=== PATIENT | male | born 1980 | race Caucasian/White ===

== ENCOUNTER 2017-05-26 04:50 | Emergency (ER) | payer SELFPAY ==
[~2017-05-26] VITALS: Ht 188 cm; Wt 89.0 kg
[2017-05-26] MEDS ORDERED: PANTOPRAZOLE IV PUSH 40 MG VIAL. IVP ONE (05:00)
[2017-05-26] MEDS ORDERED: ONDANSETRON PF 4 MG/2 ML VIAL. IV ONE (05:00)
[2017-05-26] MEDS ORDERED: IV NORMAL SALINE 1,000ML 1,000 ML IV ONE ×4 (05:00→09:00)
--- NOTE | 2017-05-26 05:08 | PHYS DOC ---
Adult General HPI HPI Patient is a 37 year old M who presents with diarrhea. Patient states he is homeless and sleeps on different peoples couches every night and his friend dropped him off of the emergency room and left immediately. Patient denies taking any illicit drugs or alcohol. Patient states he has no past medical history. Patient states he takes no intracranial medication. Patient was too weak to get a wheelchair had to be picked up and put in the bed. Patient is a very poor historian and is somnolent but arousable with gentle shaking. Patient looks very pale. Review of Systems Review of Systems Unable to obtain secondary to patient's clinical condition All other systems were reviewed and found to be within normal limits, except as documented in this note. Current Medications Current Medications Current Medications Medications (Trade) Dose Ordered Sig/Aramis Start Time Stop Time Status Last Admin Dose Admin Ondansetron HCl (Zofran) 4 mg 1X ONCE 05/26/17 05:00 05/26/17 05:01 UNV Pantoprazole Sodium (PROTONIX VIAL for IV PUSH) 40 mg 1X ONCE 05/26/17 05:00 05/26/17 05:01 UNV Sodium Chloride 1,000 ml @ 1,000 mls/hr 1X ONCE 05/26/17 05:00 05/26/17 05:59 UNV Physical Exam Physical Exam GEN.: Severe distress. Alert and oriented. HEENT: Head is normocephalic, atraumatic, conjunctiva was very pale, mucous membranes are dry, pupils were equal and reactive bilaterally, extraocular muscles are intact bilaterally NECK: Supple. LUNGS: CTAB. HEART: Tachycardia, S1, S2 present. Peripheral pulses intact ABDOMEN: Soft, nontender. Positive bowel sounds. EXTREMITIES: Without any cyanosis. NEUROLOGIC: Somnolent but arousable PSYCHIATRIC: Confused SKIN: No ulcerations EKG EKG [] Radiology/Procedures Radiology/Procedures [] Course & Med Decision Making Course & Med Decision Making Pertinent Labs and Imaging studies reviewed. (See chart for details) ED course: Patient was seen and examined emergency room on arrival basic blood work was ordered along with a CT of the abdomen and pelvis and CT of the head along with urine drug screens and EtOH level and a type and cross 0600: Patient was signed out to Dr. Stubbs who will follow-up on lab work and found disposition I assumed care of the patient after a thorough checkout from Dr. Funk. Patient 's i-STAT labs have just returned with a hemoglobin and detectable. I called the blood bank right away to request that they get started on 4 units of O- blood. Blood bank is starting on the right away and will arrange for that to be delivered to the emergency department. Patient has had 2 L of normal saline. I reevaluated the patient. He is extremely pale, lethargic but is attempting to follow commands, he is tachycardic but not hypotensive. Discussed with the ED nursing staff are planned to rapidly transfuse 4 units of O- blood. They used a combination of rapid transfuser, pressure bags, and pump to get 4 units and him right away. Patient has already had IV Protonix, I ordered a dose of IV octreotide. I discussed the case with Dr. Hawthorne, emergency physician at [facility], who will help coordinate care from that end. I discussed the case with Dr. Sandoval, hospitalist at [facility], who will accept the patient for transfer to the ICU. [facility] nursing butcher supervisor is arranging for an ICU bed and EMS transfer. As the fourth unit of O- is going in, reassessed the patient. He looks much better. His color is better. He is mentating better, joking with family. His heart rate is down to about 105. Dr. Hawthorne called me back and he has discussed the patient with Dr. Albert, GI, and Dr. Nazario, general surgery. They are aware of the patient and will see him at [facility]. Dr. Hawthorne will take a look at the patient as he passes through the emergency department on his way to the intensive care unit. EMS arrived and we discussed the plan for emergency transport to [facility] and have Dr. Hawthorne look at the patient on the way to the ICU. Patient has been stabilized with blood transfusion to the best of our ability here at [facility] prior to transportation to [facility] where he can have GI and general surgery emergent consultation. I elected to cancel the CT scans here, preferred to resuscitate the patient with blood transfusions and transfer him for definitive care to [facility]. Critical care time 120 minutes including evaluation and management of critical GI bleed with critical anemia, tachycardia, blood transfusions, IV medications, arranging for transfer to higher level of care, consultation with accepting physician, talking to family, documentation, writing orders. [] Dragon Disclaimer Dragon Disclaimer This electronic medical record was generated, in whole or in part, using a voice recognition dictation system. Departure Departure: Impression: Primary Impression: GI bleed Additional Impression: Anemia Disposition: 02 XFER SHT-TRM HOSP Condition: CRITICAL Referrals: PCP,NO (PCP) Problem Qualifiers HERB FUNK DO May 26, 2017 05:08 KENJI STUBBS MD May 26, 2017 07:35
[2017-05-26 05:54] LABS: BASO # 0.1 x10^3/uL (0.0-0.2); BASO % 1 % (0-3); EOS # 0.2 x10^3/uL (0.0-0.7); EOS % 1 % (0-3); LYMPH # 6.9 x10^3/uL (1.0-4.8); LYMPH % 35 % (24-48); MEAN CORPUSCULAR HEMOGLOBIN 32 pg (25-35); MEAN CORPUSCULAR HGB CONC 31 g/dL (31-37); MEAN CORPUSCULAR VOLUME 103 fL (79-100); MONO # 1.3 x10^3/uL (0.0-1.1); MONO % 7 % (0-9); NEUT # 11.3 x10^3uL (1.8-7.7); NEUT % 57 % (31-73); PLATELET COUNT 390 x10^3/uL (140-400); RED CELL DISTRIBUTION WIDTH 19.1 % (11.5-14.5); WHITE BLOOD COUNT 19.8 x10^3/uL (4.0-11.0)
[2017-05-26 06:08] LABS: HEMATOCRIT 10.3 % (39.0-53.0); HEMOGLOBIN 3.2 g/dL (13.0-17.5)
--- NOTE | 2017-05-26 06:10 | EKG ---
[address] [address] Test Date: 2017-05-26 Test Time: 05:53:34 Pat Name: JCARLOS MEDRANO Department: Room: Gender: M Sharepoint Administrator: BARNEY : 1980 Requested By: HERB FUNK Order Number: [id number] Reading MD: Dieter Meraz Measurements Intervals Wilson Rate: 130 P: -90 OH: 100 QRS: -7 QRSD: 82 T: 23 QT: 320 QTc: 471 Interpretive Statements SINUS TACHYCARDIA LEFTWARD AXIS QRS(T) CONTOUR ABNORMALITY CONSIDER ANTEROSEPTAL MYOCARDIAL DAMAGE ST & T ABNORMALITY, CONSIDER INFERIOR ISCHEMIA OR LEFT VENTRICULAR STRAIN ABNORMAL ECG Electronically Signed On 06-01-2017 10:37:35 FILLER MIXER by Dieter Meraz
[2017-05-26 06:12] LABS: ALBUMIN 2.6 g/dL (3.4-5.0); CALCIUM 7.7 mg/dL (8.5-10.1); CREATININE 1.5 mg/dL (0.7-1.3); GFR 52.7; POTASSIUM 3.2 mmol/L (3.5-5.1); TOTAL BILIRUBIN 0.3 mg/dL (0.2-1.0); TOTAL PROTEIN 5.2 g/dL (6.4-8.2)
[2017-05-26] MEDS ORDERED: IOHEXOL 300 MG/ML 75 ML VIAL. IV ONE (06:15)
[2017-05-26] MEDS ORDERED: CONTRAST GIVEN MC PRN (06:15)
[2017-05-26 06:40] VITALS: BP 130/59
[2017-05-26 06:44] LABS: CLARITY,URINE HAZY; COLOR,URINE STRAW
[2017-05-26 06:45] LABS: BACTERIA,URINE MOD /HPF (0-FEW); BARBITURATES NEG (NEG); BENZODIAZEPINES NEG (NEG); BILIRUBIN,URINE NEG (NEG); CANNABINOIDS POS (NEG); COCAINE NEG (NEG); GLUCOSE,URINE NEG (NEG); METHADONE NEG (NEG); NITRITE,URINE NEG (NEG); OPIATES NEG (NEG); PHENCYCLIDINE NEG (NEG); SQUAMOUS EPITHELIAL CELL,UR FEW /LPF; UROBILINOGEN,URINE 0.2 mg/dL (0.2 mg/dL); WBC,URINE 0 /HPF (0-4)
[2017-05-26 06:46] LABS: AMORPHOUS SEDIMENT,UR PRESENT /HPF; SPERM,URINE PRESENT /HPF
[2017-05-26 06:49] LABS: AMPHETAMINE/METHAMPHETAMINE POS (NEG)
[2017-05-26 06:52] VITALS: BP 132/60
[2017-05-26] MEDS ORDERED: OCTREOTIDE 100 MCG/ML VIAL IV ONE ×3 (07:00→07:45)
[2017-05-26 07:04] VITALS: BP 117/55
[2017-05-26 07:24] VITALS: BP 136/68
[2017-05-26 07:29] LABS: FECAL OB PT POSITIVE (NEG)
[2017-05-26 07:33] VITALS: BP 135/67
[2017-05-26 10:14] LABS: % BANDS 6 % (0-9); % BASOS 0 % (0-3); % EOS 0 % (0-5); % LYMPHS 42 % (24-48); % MONOS 4 % (0-10); % SEGS 48 % (35-66); ANISOCYTOSIS SLIGHT; MICROCYTOSIS SLIGHT; NUCLEATED RBC 2; PLT ESTIMATE ADEQUATE (ADEQUATE); POLYCHROMASIA MOD; SPHEROCYTES PRESENT
[2017-05-26 10:15] LABS: TARGET CELLS PRESENT; TOXIC GRANULATION PRESENT
== END 2017-05-26 07:50 | disposition short-term general hospital (02) ==
LOC: ER 04:50
DX: K92.2 Gastrointestinal hemorrhage, unspecified (principal); D64.9 Anemia, unspecified; Z59.0 Homelessness
CPT/HCPCS: 36415; 36430; 80053; 80307; 81001; 82274; 83605; 83690; 83735; 84484; 85007; 85025; 86850; 86900; 86901; 86920; 87086; 93005; 96361; 96374; 96375; 99291; 99292; C9113; G0480; J2354; J2405; P9016; G0479; J7030

== ENCOUNTER 2020-08-23 00:39 | Emergency (ER) | payer OTHER ==
[~2020-08-23] VITALS: Ht 188 cm; Wt 89.0 kg
[2020-08-23] MEDS ORDERED: CLIN300C9 PO (01:00)
--- NOTE | 2020-08-23 01:01 | PHYS DOC ---
Past History Past Medical History: Depression, Other Past Surgical History: No Surgical History Alcohol Use: Rarely Drug Use: Marijuana, Methamphetamine Adult General HPI HPI Patient is a 40-year-old male with no known medical history presents with a skin issue. States that it started about a week ago after he thinks he had some ingrown hairs. States he has a small spot on his upper left back and one on his left elbow. Denies any recent travel, illnesses, fevers, chest pain, shortness of breath, abdominal pain, nausea, vomiting. Denies any similar symptoms with people at home. States he is otherwise eating and drinking normally. States he would also like information for local primary care physicians as he has insurance but no doctor currently to follow-up with. Review of Systems Review of Systems Review of systems otherwise unremarkable except noted in HPI Allergies Allergies Allergies Coded Allergies Type Severity Reaction Last Updated Verified pineapple Allergy Unknown 05/26/17 Yes Physical Exam Physical Exam Constitutional: Well developed, well nourished, no acute distress, non-toxic appearance. [] HENT: Normocephalic, atraumatic, oropharynx moist, no oral exudates, Eyes: conjunctiva normal, no discharge. [] Neck: Normal range of motion, Skin: Patient has an area on upper left back with some superficial cellulitis and a couple of pustules which look like secondary to ingrown hair. Patient has a spot on left elbow that appears to be really dry skin Neurologic: Alert and oriented X 3, normal motor function, normal sensory function, no focal deficits noted. [] Psychologic: Affect normal, judgement normal, mood normal. [] EKG EKG [] Radiology/Procedures Radiology/Procedures [] Heart Score C/O Chest Pain: No Risk Factors: Risk Factors: DM, Current or recent (<one month) smoker, HTN, HLP, family history of CAD, obesity. Risk Scores: Risk Factors: DM, Current or recent (<one month) smoker, HTN, HLP, family history of CAD, obesity. Course & Med Decision Making Course & Med Decision Making Patient is a 40-year-old male who presents with skin issues Vital signs not concerning. Physical exam noted above. Started on clindamycin in the ED for cellulitis Discussed all findings with patient. Advised a course of clindamycin at home. Given contact information for local PCPs. Advised to call first thing this morning to establish care and set up an appointment in the next week to evaluate treatment and adjust if needed. Gave return precautions to the ED. Patient grateful, verbalized understanding and agreed with plan of discharge. Sulma Disclaimer Sulma Disclaimer This electronic medical record was generated, in whole or in part, using a voice recognition dictation system. Departure Departure: Impression: Primary Impression: Cellulitis of back Disposition: 01 DC HOME SELF CARE/HOMELESS Condition: GOOD Referrals: LUCIANA ROBERTS MD, RACHEL Patient Instructions: Cellulitis, [id number] Additional Instructions: Please read all the attached information. Please take your antibiotics as prescribed. Please call the numbers provided to establish care with a primary care physician. Please call the physician this morning, to set up a follow-up appointment in the next week to 10 days to evaluate treatment and adjust if necessary. Please come back to the ED with new or concerning symptoms as discussed. Scripts Clindamycin Hcl (CLINDAMYCIN HCL) 300 Mg Capsule 1 CAP PO TID for cellulitis for 7 Days, #21 CAP Prov: CHINYERE KENDRICK MD 08/23/20 CHINYERE KENDRICK MD Aug 23, 2020 01:01
[2020-08-23 01:10] VITALS: BP 128/62
[2020-08-23] MEDS ORDERED: CLINDAMYCIN HCL 150 MG CAPSULE PO ONE (01:30)
== END 2020-08-23 01:10 | disposition home or self-care (01) ==
LOC: ER 00:39
DX: L03.312 Cellulitis of back [any part except buttock and flank] (principal); Z91.018 Allergy to other foods
CPT/HCPCS: 99283

== ENCOUNTER → 2021-04-28 | Outpatient (CLI) | payer OTHER ==
[~2021-04-28] MED LIST: CLIN-95 PO
--- NOTE | 2021-04-28 10:29 | RAD ---
EXAM: AP, lateral and oblique views of the left knee DATE: 04/28/2021 10:04 AM INDICATION: Reason: LEFT KNEE PAIN FROM INJURY YESTERDAY, DIFFICULT TO WALK / Spl. Instructions: / H istory: COMPARISON: No Prior FINDINGS: No acute fracture or dislocation. No joint effusion. Joint spaces are preserved without significant degenerative/proliferative change. IMPRESSION: No acute fracture or dislocation. Electronically signed by: Estiven Mendoza MD (04/28/2021 10:27 AM) [id number]
== END ==
LOC: RAD 09:54
PROVIDERS: ATTEND Nurse Practitioner Family
DX: S89.92XA Unspecified injury of left lower leg, initial encounter (principal); M25.562 Pain in left knee; X58.XXXA Exposure to other specified factors, initial encounter; Y93.89 Activity, other specified; Y92.89 Other specified places as the place of occurrence of the external cause; Y99.8 Other external cause status
CPT/HCPCS: 73562

== ENCOUNTER → 2021-06-02 | Outpatient (CLI) | payer OTHER ==
--- NOTE | 2021-06-02 13:32 | RAD ---
Exam Date: 06/02/2021 11:43 AM XR LUMBAR SPINE 2-3V Indication: Reason: low back pain / Spl. Instructions: / History: . FINDINGS/ IMPRESSION: There is grade 1 anterolisthesis of L3 on L4.. The vertebral body heights are maintained without aracelis dence of compression fracture. Mild disc space narrowing is seen at multiple levels with small osteo phytes and mild to moderate facet joint arthropathy. The SI joints appear normal. The visualized soft tissues are within normal limits. Electronically signed by: Godfrey Bowers MD (06/02/2021 1:30 PM) [id number]
== END ==
LOC: RAD 11:36
PROVIDERS: ATTEND Nurse Practitioner Family
DX: M43.16 Spondylolisthesis, lumbar region (principal); M48.061 Spinal stenosis, lumbar region without neurogenic claudication; M25.78 Osteophyte, vertebrae; M48.8X6 Other specified spondylopathies, lumbar region
CPT/HCPCS: 72100

== ENCOUNTER 2021-09-04 10:52 | Emergency (ER) | payer OTHER ==
[~2021-09-04] VITALS: Ht 188 cm; Wt 122.2 kg
[2021-09-04 11:08] VITALS: BP 148/103
--- NOTE | 2021-09-04 11:17 | PHYS DOC ---
Past History Past Medical History: Depression, Other Additional Past Medical Histor: gastric ulcers Past Surgical History: No Surgical History Alcohol Use: Rarely Drug Use: Marijuana, Methamphetamine General Adult EDM: Chief Complaint: ABDOMINAL PAIN HPI: HPI: Patient is a 41-year-old male coming in for right upper quadrant abdominal pain for the past 3 to 4 days. Patient states he had some spicy food and then started having pain. Says it is sometimes worse with eating food. Took some Pepto-Bismol last night with a little bit of relief. Patient has a history of gastric ulcers including perforation and bleeding. Denies any nausea vomiting. Patient states he has had decreased bowel movements and they have been small. To do was prescribed ranitidine after his perforation in 2017 but did not take it. Denies any NSAID or alcohol use. Last p.o. intake 1000 (1 hour prior to arrival) Review of Systems: Review of Systems: All other systems within normal limits except for as noted in the HPI Allergies: Allergies: Allergies Coded Allergies Type Severity Reaction Last Updated Verified pineapple Allergy Unknown 05/26/17 Yes Physical Exam: PE: Constitutional: Well developed, well nourished, no acute distress, non-toxic appearance. [] HENT: Normocephalic, atraumatic, bilateral external ears normal, nose normal. [ ] Eyes: PERRLA, conjunctiva normal, no discharge. [] Neck: No rigidity, supple, no stridor. [] Cardiovascular: Regular rate and rhythm, brisk cap refill [] Lungs & Thorax: Non labored symmetric respirations, no tachypnea or respiratory distress [] Abdomen: Soft, nondistended, epigastric tenderness, negative Ramirez's, no McBurney point tenderness. Skin: Warm, dry, no erythema, no rash. [] Back: Unremarkable Extremities: No deformities, range of motion grossly intact, no lower extremity edema [] Neurologic: Alert and oriented X 3, no focal deficits noted. [] Psychologic: Affect normal, judgement normal, mood normal. [] EKG: EKG: [] Radiology/Procedures: Radiology/Procedures: [][address] [address] IMAGING REPORT Signed PATIENT: SCOUT MEDRANO RACCOUNT: [id number] : 1980 LOCATION: ER AGE: 41 SEX: M EXAM STATUS: REG ER ORD. PHYSICIAN: CHRIS STOUT MD REASON: RUQ pain PROCEDURE: CT ABD PELV W/ IV CONTRST ONLY PQRS Compliance Statement: One or more of the following individualized dose reduction techniques were utilized for this examination: 1. Automated exposure control 2. Adjustment of the mA and/or kV according to patient size 3. Use of iterative reconstruction technique CT ABDOMEN+PELVIS W Clinical Indication: Reason: RUQ pain Comparison: None. Technique: Helical CT imaging of the abdomen and pelvis is performed after 75 cc of Omnipaque 300 IV contrast. Oral contrast not administered. Findings: Lung bases are clear. Cardiac size is normal. Gallbladder is contracted. The liver, spleen, pancreas, adrenal glands, and abdominal aorta are normal. There are lobulations of the bilateral kidneys that may be congenital or due to cortical scarring. Kidneys enhance symmetrically, no hydronephrosis. The stomach is unremarkable. There is no dilated small bowel. There is mild wall thickening of the duodenum. There is subtle induration surrounding the duodenal bulb, coronal image 22. The appendix is normal. The distal colon is decompressed accentuating the wall thickness. There is no convincing colon wall thickening. No abdominal adenopathy or free fluid. Urinary bladder is normal. Prostate and seminal vesicles are normal. No pelvic free fluid. There is degenerative endplate spurring of the thoracolumbar spine. There is minimal grade 1 anterolisthesis of L3 on L4. IMPRESSION: There is mild wall thickening of the duodenum. There is mild induration surrounding the duodenal bulb. Findings suggest duodenitis or peptic ulcer disease. Electronically signed by: Hill Villa MD (09/04/2021 12:39 PM) [id number] DICTATED AND SIGNED BY: HILL VILLA MD DATE: 09/04/21 1230 CC: CHRIS TSOUT MD; PCP,NO ~ Heart Score: C/O Chest Pain: No Risk Factors: Risk Factors: DM, Current or recent (<one month) smoker, HTN, HLP, family history of CAD, obesity. Risk Scores: Score 0 - 3: 2.5% MACE over next 6 weeks - Discharge Home Score 4 - 6: 20.3% MACE over next 6 weeks - Admit for Clinical Observation Score 7 - 10: 72.7% MACE over next 6 weeks - Early Invasive Strategies Course & Med Decision Making: Course & Med Decision Making Pertinent Labs and Imaging studies reviewed. (See chart for details) [] Sulma Disclaimer: Sulma Disclaimer: This electronic medical record was generated, in whole or in part, using a voice recognition dictation system. Departure Departure: Impression: Primary Impression: Peptic ulcer disease Disposition: HOME / SELF CARE / HOMELESS Condition: STABLE Referrals: ALISHA GONSALVES MD Patient Instructions: Diet for Peptic Ulcer Disease Scripts Sucralfate (CARAFATE) 1 Gm Tablet 1 TAB PO TID for stomach pain for 30 Days, #90 TAB 0 Refills Prov: CHRIS STOUT MD 09/04/21 Omeprazole (OMEPRAZOLE) 40 Mg Capsule. 1 CAP PO DAILY for antacid, #30 CAP 3 Refills Prov: CHRIS STOUT MD 09/04/21 CHRIS STOUT MD Sep 04, 2021 11:17
[2021-09-04] MEDS ORDERED: FAMOTIDINE 20 MG/2 ML VIAL IVP ONE (11:30)
[2021-09-04] MEDS ORDERED: IOHEXOL 300 MG/ML 75 ML VIAL. IV ONE (11:45)
[2021-09-04 12:07] LABS: BASO # 0.1 x10^3/uL (0.0-0.2); BASO % 1 % (0-3); EOS # 0.2 x10^3/uL (0.0-0.7); EOS % 2 % (0-3); HEMATOCRIT 42.3 % (39.0-53.0); LYMPH # 2.6 x10^3/uL (1.0-4.8); LYMPH % 31 % (24-48); MEAN CORPUSCULAR HEMOGLOBIN 31 pg (25-35); MEAN CORPUSCULAR HGB CONC 33 g/dL (31-37); MEAN CORPUSCULAR VOLUME 94 fL (79-100); MONO # 0.6 x10^3/uL (0.0-1.1); MONO % 8 % (0-9); NEUT # 4.7 x10^3uL (1.8-7.7); NEUT % 58 % (31-73); PLATELET COUNT 230 x10^3/uL (140-400); RED BLOOD COUNT 4.49 x10^6/uL (4.30-5.70); RED CELL DISTRIBUTION WIDTH 13.5 % (11.5-14.5); WHITE BLOOD COUNT 8.2 x10^3/uL (4.0-11.0)
[2021-09-04 12:13] LABS: CALCIUM 8.8 mg/dL (8.5-10.1); GFR 82.3
[2021-09-04 12:29] LABS: ALBUMIN 3.7 g/dL (3.4-5.0); ALBUMIN/GLOBULIN RATIO 0.9 (1.0-1.7); TOTAL BILIRUBIN 0.3 mg/dL (0.2-1.0); TOTAL PROTEIN 7.7 g/dL (6.4-8.2)
--- NOTE | 2021-09-04 12:41 | RAD ---
PQRS Compliance Statement: One or more of the following individualized dose reduction techniques were utilized for this examinat ion: 1. Automated exposure control 2. Adjustment of the mA and/or kV according to patient size 3. Use of iterative reconstruction technique CT ABDOMEN+PELVIS W Clinical Indication: Reason: RUQ pain Comparison: None. Technique: Helical CT imaging of the abdomen and pelvis is performed after 75 cc of Omnipaque 300 IV contrast. Oral contrast not administered. Findings: Lung bases are clear. Cardiac size is normal. Gallbladder is contracted. The liver, spleen, pancreas, adrenal glands, and abdominal aorta are martin l. There are lobulations of the bilateral kidneys that may be congenital or due to cortical scarring. Kidneys enhance symmetrically, no hydronephrosis. The stomach is unremarkable. There is no dilated small bowel. There is mild wall thickening of the du odenum. There is subtle induration surrounding the duodenal bulb, coronal image 22. The appendix is n ormal. The distal colon is decompressed accentuating the wall thickness. There is no convincing colon wall thickening. No abdominal adenopathy or free fluid. Urinary bladder is normal. Prostate and seminal vesicles are normal. No pelvic free fluid. There is degenerative endplate spurring of the thoracolumbar spine. There is minimal grade 1 anteroli sthesis of L3 on L4. IMPRESSION: There is mild wall thickening of the duodenum. There is mild induration surrounding the duodenal bulb . Findings suggest duodenitis or peptic ulcer disease. Electronically signed by: Hill Villa MD (09/04/2021 12:39 PM) [id number]
[2021-09-04] MEDS ORDERED: SUCR1TAB35 PO (13:22)
[2021-09-04] MEDS ORDERED: OMEP40CA7 PO (13:22)
== END 2021-09-04 13:40 | disposition home or self-care (01) ==
LOC: ER 10:52
DX: K27.9 Peptic ulcer, site unspecified, unspecified as acute or chronic, without hemorrhage or perforation (principal); F32.9 Major depressive disorder, single episode, unspecified; Z91.018 Allergy to other foods
CPT/HCPCS: 36415; 74177; 80053; 83605; 85025; 96374; 99285; J3490